=== PATIENT | male | born 1990 | race Hispanic/Latino ===

== ENCOUNTER 2017-10-14 00:32 | Emergency (ER) | payer OTHER ==
[~2017-10-14] VITALS: Ht 180.3 cm; Wt 94.0 kg
[~2017-10-14 00:32] MED LIST: LORTAB 5/3255 MG PO
[2017-10-14 02:16] LABS: INFLUENZA A NONE DETECTED (NONE DETECT); INFLUENZA B NONE DETECTED (NONE DETECT)
[2017-10-14] MEDS ORDERED: AMOXICILLIN500 MG PO (02:18)
[2017-10-14 02:40] VITALS: BP 128/77
== END 2017-10-14 02:42 | disposition home or self-care (01) | DRG 153 ==
LOC: ED 00:32
PROVIDERS: Emergency Medicine
DX: J02.0 Streptococcal pharyngitis (principal)

== ENCOUNTER 2018-08-16 16:39 | Emergency (ER) | payer SELFPAY ==
[~2018-08-16] VITALS: Ht 180.3 cm; Wt 95.0 kg
[~2018-08-16 16:39] MED LIST changes: +AMOXICILLIN500 MG PO
[2018-08-16 17:58] LABS: IMMATURE GRANULOCYTES 0.2 % (0.0-5.0); MEAN CELL VOLUME 82.4 fL CALC (80.0-100.0); MEAN CORPUSCULAR HGB 28.6 pG CALC (26.0-32.0); MEAN CORPUSCULAR HGB CONC 34.7 g/L CALC (32.0-36.0); NEUT# 4.43 thou/uL (1.82-7.42); RED BLOOD COUNT 5.46 mill/uL (4.70-6.10); RED CELL DISTRI WIDTH 12.1 % (11.5-15.5)
[2018-08-16 18:04] LABS: HEMOGLOBIN 15.6 g/dl (14.0-18.0)
[2018-08-16 18:15] LABS: ANION GAP 16 (6-22 (CALC)); BUN 17 mg/dL (9-20); BUN/CREATININE RATIO 16 (12-20 (CALC)); CARBON DIOXIDE 27 mmol/l (22-30); CHLORIDE 102 mmol/l (95-108); CREATININE 1.1 mg/dL (0.7-1.3); GFR > 60 ML/MIN (>=60 (CALC)); GFR FOR AFR.AMER. > 60 ML/MIN (>=60 (CALC)); LIPASE 156 u/l (23-300); MAGNESIUM 1.9 mg/dL (1.6-2.3); POTASSIUM 4.5 mmol/l (3.5-5.1); SGOT/AST 28 u/l (17-59); SODIUM 140 mmol/l (137-146); TOTAL PROTEIN 8.2 g/dL (6.3-8.2)
[2018-08-16 18:34] LABS: ALKALINE PHOSPHATASE 78 u/l (38-126)
[2018-08-16] MEDS ORDERED: FLEXERIL5 M1 PO (21:17)
[2018-08-16] MEDS ORDERED: IBUPROFEN600 MG PO (21:17)
[2018-08-16 21:30] VITALS: BP 126/72
== END 2018-08-16 21:30 | disposition home or self-care (01) | DRG 206 ==
LOC: ED 16:39
DX: M94.0 Chondrocostal junction syndrome [Tietze] (principal); M62.838 Other muscle spasm

== ENCOUNTER 2019-10-17 | Emergency (ER) | payer SELFPAY ==
[~2019-10-17] MED LIST changes: +FLEXERIL5 M1 PO; +IBUPROFEN600 MG PO
[2019-10-17] MEDS ORDERED: AMOXICILLIN500 MG PO (17:25)
== END 2019-10-17 17:45 | disposition home or self-care (01) | DRG 605 ==
PROC: 0HQKXZZ Repair Right Lower Leg Skin, External Approach (ICD-10-PCS; principal; 2019-10-17)
DX: S81.011A Laceration without foreign body, right knee, initial encounter (principal); W29.3XXA Contact with powered garden and outdoor hand tools and machinery, initial encounter; Y93.89 Activity, other specified; Y92.009 Unspecified place in unspecified non-institutional (private) residence as the place of occurrence of the external cause

== ENCOUNTER 2019-10-26 | Emergency (ER) | payer SELFPAY | END 2019-10-26 15:00 | disposition home or self-care (01) | DRG 950 | DX: S81.011D Laceration without foreign body, right knee, subsequent encounter (principal); X58.XXXD Exposure to other specified factors, subsequent encounter ==

== ENCOUNTER 2020-07-24 09:41 | Emergency (ER) | payer OTHER ==
[~2020-07-24] VITALS: Ht 180.3 cm; Wt 100.0 kg
[2020-07-24] MEDS ORDERED: NAPROXEN500 MG PO (10:18)
[2020-07-24 10:35] VITALS: BP 132/77
== END 2020-07-24 10:35 | disposition home or self-care (01) ==
LOC: ED 09:41
DX: S93.402A Sprain of unspecified ligament of left ankle, initial encounter (principal); X50.3XXA Overexertion from repetitive movements, initial encounter; Y93.89 Activity, other specified; Y92.009 Unspecified place in unspecified non-institutional (private) residence as the place of occurrence of the external cause